=== PATIENT | female | born 1980 | race American Indian/Alaskan Native ===

== ENCOUNTER 2018-06-02 19:13 | Emergency (ER) | payer SELFPAY ==
[2018-06-02 20:50] LABS: Bilirubin,Urine NEG (Negative); Blood,Urine NEG (Negative); Color,Urine Yellow (Yellow); Mucus,Urine FEW /HPF; Protein,Urine <15 mg/dL mg/dL (Negative); Urobilinogen,Urine < 2.0 mg/dL (<2.0)
--- NOTE | 2018-06-02 23:17 | Cat Scan Report ---
FINAL REPORT EXAM: CT ABDOMEN PELVIS WO CON HISTORY: fluid build up s/p liposuction COMPARISON: None available. TECHNIQUE: Contiguous axial images were obtained. Additional sagittal and coronal reformatted images were obtained. FINDINGS: Linear densities at the lung bases likely reflecting atelectasis. Diffuse fatty infiltration of the liver. Liver measures 21 centimeters within normal limits. Fatty sparing along the gallbladder fossa. No calcified gallstones. Spleen is mildly enlarged measuring 13 centimeters. Pancreas and adrenal glands are grossly unremarkable. No nephrolithiasis or hydronephrosis. Aorta and IVC normal in caliber. Urinary bladder, uterus and ovaries are grossly unremarkable. No free fluid or lymphadenopathy in the pelvic cavity. Large and small bowel loops normal in caliber. Prior appendectomy. No focal inflammatory changes the bowel. There is ill-defined fluid throughout the subcutaneous fat along the bilateral flank regions. Small loculated collections are not excluded. This is all confined to the subcutaneous fat. There is overlying skin thickening. There is less prominent subcutaneous fat stranding along the anterior abdominal wall. Tiny pockets a gas are present from recent surgery. IMPRESSION: Prominent nonspecific fluid the subcutaneous fat along the bilateral flank regions. Small loculated collection not excluded. There is associated skin thickening. There is less prominent subcutaneous fat stranding and pockets a gas along anterior abdominal wall. No other acute findings.
--- NOTE | 2018-06-02 23:33 | Emergency Department Report ---
ED Abdominal Pain HPI - General Chief Complaint: Pain General Stated Complaint: FLUIDS LOWER STOMACH Time Seen by Provider: 06/02/18 23:11 Source: patient Mode of arrival: Ambulatory Limitations: No Limitations - History of Present Illness Initial Comments: She is a 37-year-old female presents to emergency room with complaints of bilateral flank pain and lower back pain radiating to her flanks and abdomen. Patient states that 2 weeks ago she had a surgery to have liposuction, tummy tuck, Vietnamese but left and she has now developed fluid build up at the surgical sites. Patient states she has had them drained before at her surgeon' s office but at this time her surgery is closed and patient came to the emergency room to have her fluid drained. Patient denies fever and chills. Patient denies chest pain shortness of breath. Patient states the pain is a 7 out of 10. Patient states the pain is worse with sitting and movement. And better with standing. Patient states she came to the emergency room for us to drain the fluid from around her surgical site, since her surgeon's office is closed. MD Complaint: abdominal pain, flank pain -: Sudden Location: L flank, R flank Radiation: back Migration to: no migration Severity: severe Severity scale (0 -10): 7 Quality: cramping, aching, fullness Consistency: constant Worsens With: movement Context: recent surgery/procedure Associated Symptoms: denies: nausea, vomiting, diarrhea, fever, chills, constipation, dysuria, hematemesis, melena, hematuria, anorexia, syncope - Related Data LMP (females 10-50): last week Allergies Allergy/AdvReac Type Severity Reaction Status Date / Time celecoxib [From Celebrex] Allergy Unknown Verified 06/02/18 19:42 morphine Allergy Hives Verified 06/02/18 19:42 ED Review of Systems ROS: Stated complaint: FLUIDS LOWER STOMACH Other details as noted in HPI Constitutional: denies: chills, fever Eyes: denies: eye pain, eye discharge, vision change ENT: denies: ear pain, throat pain Respiratory: denies: cough, shortness of breath, wheezing Cardiovascular: denies: chest pain, palpitations Endocrine: no symptoms reported Gastrointestinal: abdominal pain. denies: nausea, diarrhea Genitourinary: denies: urgency, dysuria, discharge Musculoskeletal: back pain. denies: joint swelling, arthralgia Skin: denies: rash, lesions Neurological: denies: headache, weakness, paresthesias Psychiatric: denies: anxiety, depression Hematological/Lymphatic: denies: easy bleeding, easy bruising ED Past Medical Hx - Past Medical History Previous Medical History?: No - Surgical History Past Surgical History?: Yes Hx Appendectomy: Yes (2003) Additional Surgical History: c- section x2, tummy tuck, liposuction, [place] butt lift/2018 - Family History Family history: no significant - Social History Smoking Status: Never Smoker Substance Use Type: None ED Physical Exam - General Limitations: No Limitations General appearance: alert, in no apparent distress - Head Head exam: Present: atraumatic, normocephalic - Eye Eye exam: Present: normal appearance - ENT ENT exam: Present: mucous membranes moist - Neck Neck exam: Present: normal inspection - Respiratory Respiratory exam: Present: normal lung sounds bilaterally. Absent: respiratory distress - Cardiovascular Cardiovascular Exam: Present: regular rate, normal rhythm. Absent: systolic murmur, diastolic murmur, rubs, gallop - GI/Abdominal GI/Abdominal exam: Present: soft, tenderness (karla flank ttp), normal bowel sounds - Extremities Exam Extremities exam: Present: normal inspection - Back Exam Back exam: Present: normal inspection - Neurological Exam Neurological exam: Present: alert, oriented X3 - Psychiatric Psychiatric exam: Present: normal affect, normal mood - Skin Skin exam: Present: warm, dry, intact (swelling noted at surgical site and back. No redness noted. No tenderness to palpation noted), normal color. Absent: rash ED Course Vital Signs 06/02/18 06/02/18 19:42 23:53 Temperature 98.6 F 98.2 F Pulse Rate 97 H 90 Respiratory 16 18 Rate Blood Pressure 133/95 Blood Pressure 130/86 [Left] O2 Sat by Pulse 99 99 Oximetry - Reevaluation(s) Reevaluation #1: Patient states she is able to have ibuprofen and Toradol. 06/03/18 00:30 Reevaluation #2: Patient given discharge instructions. Patient is stable for discharge. Patient agrees with plan of care. Patient instructed to return to ER if condition worsens. Patient to follow up with primary care and surgeon as directed. 06/03/18 01:43 ED Medical Decision Making - Lab Data Result diagrams: 06/02/18 00:45 06/02/18 00:45 - Radiology Data Radiology results: report reviewed Subcutaneous fluid noted along the flank region on CT scan - Medical Decision Making Patient is a 37-year-old female postop 2 weeks from a liposuction, tummy tuck, and Vietnamese but left. Patient is stable for discharge. Patient is given all discharge instructions. Patient to be discharged home to follow up with her primary care and surgeon. No site infection is noted - Differential Diagnosis flank pain. site swelling. seroma. back pain. Critical care attestation.: If time is entered above; I have spent that time in minutes in the direct care of this critically ill patient, excluding procedure time. ED Disposition Clinical Impression: Flank pain Back pain Qualifiers: Back pain location: low back pain Chronicity: acute Back pain laterality: bilateral Sciatica presence: without sciatica Qualified Code(s): M54.5 - Low back pain Swelling of surgical site Qualifiers: Encounter type: initial encounter Qualified Code(s): T81.89XA - Other complications of procedures, not elsewhere classified, initial encounter Disposition: TO HOME OR SELFCARE Is pt being admited?: No Does the pt Need Aspirin: No Condition: Stable Instructions: Wound Healing and Your Diet (ED), Flank Pain (ED), Back Pain (ED) Additional Instructions: To take ibuprofen and Tylenol when necessary for pain. Patient to follow up with surgeon and 2-3 days. Patient to follow up with primary care 3-5 days. Patient to return to ER if condition worsens. Patient to use warm compress. Patient to rest. Patient to increase water. Referrals: PRIMARY CARE, [Primary Care Provider] - 3-5 Days Time of Disposition: 01:41
[2018-06-02 23:55] VITALS: BP 130/86
[2018-06-03] MEDS ORDERED: TORADOL IM ONE (00:28)
[2018-06-03 01:00] LABS: Basophils % (Auto) 0.3 % (0.0-1.8); Eosinophils # (Auto) 0.2 K/mm3 (0.0-0.4); Eosinophils % (Auto) 2.2 % (0.0-4.3); Hematocrit 30.3 % (30.3-42.9); Lymphocytes # (Auto) 2.4 K/mm3 (1.2-5.4); Lymphocytes % (Auto) 22.4 % (13.4-35.0); Mean Corpuscular HGB Conc 33 % (30-34); Mean Corpuscular Hemoglobin 29 pg (28-32); Mean Corpuscular Volume 88 fl (79-97); Monocytes # (Auto) 0.5 K/mm3 (0.0-0.8); Monocytes % (Auto) 4.6 % (0.0-7.3); Platelet Count 291 K/mm3 (140-440); Red Blood Count 3.46 M/mm3 (3.65-5.03); Red Cell Distribution Width 14.8 % (13.2-15.2)
[2018-06-03 01:17] LABS: HCG Qualitative,Urine Negative (Negative)
[2018-06-03 01:20] LABS: Alanine Aminotransferase 13 units/L (7-56); Albumin 3.8 g/dL (3.9-5); BUN/Creatinine Ratio 13; Blood Urea Nitrogen 9 mg/dL (7-17); Calcium 9.1 mg/dL (8.4-10.2); Hemolysis Index 4
== END 2018-06-03 01:50 | disposition home or self-care (01) ==
LOC: ED 19:13
DX: T81.89XA Other complications of procedures, not elsewhere classified, initial encounter (principal); R10.9 Unspecified abdominal pain; M54.5 Low back pain; Z90.89 Acquired absence of other organs; Z88.6 Allergy status to analgesic agent
CPT/HCPCS: 36415; 74176; 80053; 81001; 81025; 85025; 96372; 99284; J1885